=== PATIENT | male | born 1960 | race Hispanic/Latino ===

== ENCOUNTER 2020-06-10 08:15 | Outpatient (CLI) | payer BC, MEDICAID, SELFPAY | END 2020-06-10 08:16 | disposition home or self-care (01) | PROVIDERS: PCP Emergency Medicine; Visit Provider Emergency Medicine | DX: H90.3 Sensorineural hearing loss, bilateral (principal) | CPT/HCPCS: 92557; 92567 ==

== ENCOUNTER 2020-10-02 10:03 | Emergency (ER) | payer OTHER, BC, SELFPAY ==
--- NOTE | ~2020-10-02 | XR_ITS ---
EXAMINATION: XR foot LT min 3V DATE: 10/02/2020 10:29 INDICATION: Left foot pain. Injury. TECHNIQUE: 4 views of left foot were obtained. COMPARISON: None. FINDINGS: There is moderate hallux valgus. No fracture. There is mild osteoarthritis of first metatar sophalangeal joint and talonavicular joint. There is an enthesophyte at plantar aspect of calcaneal t uberosity. IMPRESSION: 1. Mild polyarticular osteoarthritis. 2. Moderate hallux valgus. Reviewed, dictated and finalized at location B.
[2020-10-02 10:17] VITALS: BP 112/79; PULSE 62; RESP 20; TEMP 36.1; O2SAT 97
--- NOTE | 2020-10-02 10:28 | ED.LOWEXIN ---
HPI - Extremity Injury (Lower) General Chief Complaint: Extremity Injury, Lower Stated Complaint: L FOOT INJURY Source: patient Mode of arrival: ambulatory Limitations: no limitations History of Present Illness HPI Narrative: Kain Diego is a 60 yo male with a PMH of GERD, anxiety, high cholesterol, who comes to [facility] after having his left foot run over by a roller yesterday at work. He was wearing steel toed shoes. 2 out of 10 pain to distal part of toes, some tingling Patient fell off back home couple years ago and had resulted in a cervical fusion he applied for disability and was denied he been off work for many years before he went back to work; currently working paving, but that ran over his foot with a large industrial size roller Related Data Home Medications Medication Instructions Recorded Confirmed alprazolam 10/02/20 hydrocodone-acetaminophen tablet 10/02/20 omeprazole 10/02/20 simvastatin mg 10/02/20 zolpidem 10/02/20 Allergies Allergy/AdvReac Type Severity Reaction Status Date / Time naproxen Allergy Mild Rash Verified 10/02/20 10:16 Review of Systems Review of Systems: CONSTITUTIONAL: Denies fever, chills, sweats. EYES: Denies visual changes, redness, discharge. ENT: Denies rhinorrhea, congestion, sore throat, otalgia. CARDIOVASCULAR: Denies chest pain, palpitations, edema. RESPIRATORY: Denies dyspnea, wheezing, cough GASTROINTESTINAL: Denies abdominal pain, nausea, vomiting, diarrhea. GENITOURINARY: Denies dysuria, hematuria, abnormal discharge SKIN: Denies rash or itching. NEUROLOGIC: Denies numbness, or focal weakness. PSYCHIATRIC: Denies anxiety or depression. Left foot pain after trauma yesterday at work [facility] Past Medical History Medical History Chronic back pain GERD with apnea High cholesterol Tobacco abuse Family History Family History Other No acute medical problems Social History Social History (Updated 10/02/20 @ 10:51 by Nikki Baez CNP) Smoking packs per day: 0.25 Smoking cigarettes per day: 5.0 Smoking status: Current every day smoker Tobacco type: cigarettes Alcohol intake: never Comments At time of signature, I agree with nursing past medical, surgical, social and family history. There is no relevant family history pertinent to the presenting complaint. Exam Narrative: GENERAL: This is a well-nourished, well-developed patient, in mild distress. HEAD: normocephalic, atraumatic. EYES: Sclera clear/white. Vision is grossly intact. EARS: External ears normal,. Hearing grossly intact. NOSE: External nose normal without nasal discharge, nares without redness, no rhinorrhea. THROAT: Mucous membranes moist, NECK: Neck supple, non-tender CARDIOVASCULAR: Regular rate and rhythm without murmurs, gallops, or rubs. RESPIRATORY: Clear to auscultation. Breath sounds equal bilaterally. No wheezes, rales, or rhonchi. GASTROINTESTINAL: not done SKIN: warm, intact with no suspicious lesions or rash, good texture and turgor. NEURO: awake, alert, and oriented to person, place and time. There were no obvious focal neurologic abnormalities. Steady gait EXTREMITIES: Able to walk on foot states the pain is 2 out of 10 on exam has light bruising at the base of his great toe nail and distal phalanges as well as mild numbness and great toe in the next 2 toes he has a small bruise on the dorsal proximal foot towards the great toe,2+ pedal pulse, is able to move toes, minimal swelling noted BACK: Nontender without deformity Course Course Emergency Course: Came to [facility] today for evaluation of left foot after foot was run over with a roller at work yesterday X-rays negative for fracture, mild polyarticular osteoarthritis, moderate hallux valgus, incidental enthescphyte at plantar aspect of calcaneal tuberosity Denzel wrap applied to foot, he morales
== END 2020-10-02 11:06 | disposition home or self-care (01) ==
PROVIDERS: Emergency Provider Nurse Practitioner; PCP Emergency Medicine
DX: S99.922A Unspecified injury of left foot, initial encounter (principal); X58.XXXA Exposure to other specified factors, initial encounter; K21.9 Gastro-esophageal reflux disease without esophagitis; F41.9 Anxiety disorder, unspecified; E78.00 Pure hypercholesterolemia, unspecified
CPT/HCPCS: 73630; 99213; G0463

== ENCOUNTER → 2021-02-24 15:26 | Outpatient (CLI) | payer BC, MEDICAID, SELFPAY ==
--- NOTE | ~2021-02-24 | CT_ITS ---
EXAMINATION: CT lung screening DATE: 02/24/2021 15:54 INDICATION: Personal history of nicotine dependence, current smoker with 40 pack year history TECHNIQUE: Computed tomography (CT) of the chest was performed without intravenous contrast. The dose -length product (DLP) was 89.86 mGy-cm. Automated exposure control and iterative reconstruction techn An [employer] were employed. COMPARISON: None FINDINGS: There is a 3 mm nodule of the right middle lobe. There is mild dependent atelectasis. There is atelectasis or scarring of the lingula. No acute airspace opacities are identified. There is no p leural effusion or pneumothorax. No pathologically enlarged thoracic lymph nodes are identified. The heart size is normal. There are partially imaged changes of anterior fusion of the lower cervical spi ne. There is mild thoracic spondylosis. IMPRESSION: 1. Lung-RADS category 2: Benign appearance or behavior. Continue annual screening with noncontrast lo w-dose chest CT in 12 months. Reviewed, dictated and finalized at location F. IC ADMINISTRATION PROFESSOR IMPRESSION: 1. Lung-RADS category 2: Benign appearance or behavior. Continue annual screeni ng with noncontrast low-dose chest CT in 12 months.
== END ==
PROVIDERS: Visit Provider Emergency Medicine
DX: Z12.2 Encounter for screening for malignant neoplasm of respiratory organs (principal); Z87.891 Personal history of nicotine dependence
CPT/HCPCS: 71271

== ENCOUNTER 2021-09-15 14:00 | Outpatient (CLI) | payer BC, MEDICAID, SELFPAY ==
--- NOTE | ~2021-09-15 | CT_ITS ---
EXAMINATION: CT abdomen pelvis wo/w con DATE: 09/15/2021 15:05 INDICATION: Asymptomatic microscopic hematuria TECHNIQUE: Computed tomography (CT) of the abdomen and pelvis was performed without and subsequently with 130 CC Omnipaque 350 intravenous contrast. Automated exposure control and iterative reconstructi on technique were employed. Exam dose: 1334.84 mGy-cm total exam DLP. COMPARISON: 09/27/2010 complete abdominal ultrasound examination FINDINGS: There is mild discoid atelectasis and/or scarring at both lung bases. Heart size is within normal range. No pleural or pericardial effusion. The liver, gallbladder, bile ducts, pancreas, pancreatic duct and spleen appear normal. Normal morphology of the adrenal glands. Several renal cysts including 3 mm upper pole right renal cyst, 12 mm lower pole right renal cyst, 5 mm lower pole right renal cyst. No other renal space occupying mass lesion is detected. No urinary tract calculus or hydroureteronephrosis. No filling defect of the renal collecting struct ures, ureters or urinary bladder is noted. There is prominent prostate enlargement, impressing the ba se of the urinary bladder. There is atherosclerotic calcification but normal caliber of the abdominal aorta. No intraperitoneal or retroperitoneal or pelvic mass lesion or adenopathy or ascites. Normal appendix. No bowel obstruction, bowel wall thickening, pneumatosis or intraperitoneal free air . Minimal left colon diverticulosis; no CT evidence of diverticulitis. Degenerative spurring of the thoracic spine. There is degenerative change at the lumbar apophyseal joints with associated minimal grade 1 anteroli sthesis at L4-5. There is mild degenerative disc disease of the lumbar spine. No suspicious osteolytic or osteoblastic lesions. IMPRESSION: Prominent prostate enlargement No urinary tract mass lesion or calculus or urinary tract obstruction is noted otherwise Normal appendix Mild left colonic diverticulosis; no evidence of diverticulitis Reviewed, dictated and finalized at Location A. Reviewed, dictated and finalized at location B.
[2021-09-15 14:35] LABS: Estimated Glomerular Filt Rate > 60
== END 2021-09-15 14:01 ==
LOC: MICIMG 14:02
PROVIDERS: PCP Emergency Medicine; Visit Provider Emergency Medicine
DX: R31.21 Asymptomatic microscopic hematuria (principal); K57.30 Diverticulosis of large intestine without perforation or abscess without bleeding; N40.0 Benign prostatic hyperplasia without lower urinary tract symptoms
CPT/HCPCS: 74178; Q9967

== ENCOUNTER 2022-01-17 13:17 | Outpatient (CLI) | payer BC, MEDICAID, SELFPAY ==
--- NOTE | ~2022-01-17 | MR_ITS ---
EXAMINATION: MR humerus LT wo/w con DATE: 01/17/2022 15:23 INDICATION: Left upper arm mass TECHNIQUE: Magnetic resonance imaging (MRI) of the left humerus/upper arm was performed without and w ith 14 mL Multihance intravenous contrast. A marker was placed over the mass. Sequences included axi al, sagittal and coronal T1-weighted FSE and fluid sensitive FSE STIR, axial T1-weighted FS FSE and p ost contrast axial and coronal T1-weighted FS FSE. COMPARISON: None. FINDINGS: There is a lenticular lesion T1 hyperintense subcutaneous lipoma at the medial aspect of the proximal left upper arm which measures 9.5 x 6.5 x 2.7 cm. No evident soft tissue or abnormally enhancing com ponent to the lipoma. The underlying musculature of the left upper arm is unremarkable. No other abno rmal masses or fluid collections identified. No pathologically enlarged left axillary lymphadenopathy . Normal bone marrow signal throughout. Left glenohumeral joint space appears normal. Minimal left ac romioclavicular osteoarthritis. IMPRESSION: 1. The mass of concern corresponds to a 9.5 x 6.5 x 2.7 cm subcutaneous lipoma at the medial aspect o f the proximal left upper arm. Reviewed, dictated and finalized at location A. TH AND WELLNESS ADVISOR IMPRESSION: 1. The mass of concern corresponds to a 9.5 x 6.5 x 2.7 cm subcutaneous lipoma at the medial aspect of the proximal left upper arm.
== END 2022-01-17 13:18 | disposition home or self-care (01) ==
PROVIDERS: PCP Emergency Medicine; Visit Provider Emergency Medicine
DX: D17.22 Benign lipomatous neoplasm of skin and subcutaneous tissue of left arm (principal)
CPT/HCPCS: 73220; A9577

== ENCOUNTER 2022-02-23 01:06 | Day surgery (SDC) | payer BC, MEDICAID, SELFPAY ==
[2022-02-19 08:42] VITALS: BMI 24.9
--- NOTE | 2022-02-19 08:49 | PC.NURSE ---
Report to the Outpatient Waiting Room, entrance under the green pavilion located off [facility], at time 1300 on date 02/23/22. Planned Procedure Time: 1500. Time changes happen often and if your time is changed the preop area will call you the afternoon before. - You and your visitor will be asked to self-screen and do not enter if you have any COVID symptoms. - Only one visitor is requested with a max of two and NO children visitors are allowed at this time. - The patient visitor may be requested to leave or wait in car when not with patient due to distancing restrictions. - A mask is REQUIRED within the hospital. Patients may have clear liquids (water, carbonated beverages, clear teas, apple juice) until 3 hours prior to surgery with a maximum of 20 ounces. - No food from midnight until time of surgery Take the following medications with a SIP of water the morning of surgery: XANAX, PAIN PILL IF NEEDED Medications to discontinue per physician: N/A Date to take last dose: N/A Please no make-up, nail danish, hairspray, perfume, deodorant, or body powder the day of surgery. No jewelry (including any body piercings) or valuables the day of surgery, leave them at home. Please take a shower or bath the night before, or the morning of, surgery with an antibacterial soap. Wear comfortable, loose fitting clothing. - Jewelry must be removed prior to entering the operating room. Rings and piercings that are not removed may be cut off. - The hospital will not accept responsibility for valuables. - Please leave all valuables, including medications, at home the day of surgery. If you are going home after surgery, a licensed coal tram driver must drive you home. - NO public transportation without another adult if you receive anesthesia. - We recommend that an adult stay with you for 24 hours following discharge. - We also recommend that you do not drive, make important decision, drink alcoholic beverages, or take any drugs that were not prescribed by your health care provider for at least 24 hours after your discharge time. Follow any additional instructions given to you from your surgeon. If you or anyone in your household have experienced Covid symptoms in the past week, please notify your surgeon or the nurse liaison at the phone number below for possible testing. Telephone instructions given to PT - SHAWN HORAN and asked if any additional questions and then verbalized understanding. Patient advised to call surgeon office or pre surgery nurse liaison [phone] if any additional questions.
[2022-02-23] VITALS (8 sets, daily range): BP systolic 113–144; BP diastolic 54–89; PULSE 50–75; RESP 12–16; TEMP 36.2–36.6; O2SAT 96–100
--- NOTE | 2022-02-23 10:06 | ECG_ITS ---
Measurements Intervals [place] Rate: 51 P: 47 UT: 146 QRS: 21 QRSD: 87 T: 52 QT: 432 QTc: 402 Interpretive Statements SINUS BRADYCARDIA BASELINE ARTIFACT- V1 BORDERLINE ECG NO PREVIOUS ECG AVAILABLE FOR COMPARISON Electronically Signed On 02-23-2022 10:24:53 CONCRETE BOOM OPERATOR by Edgar Caballero D.O.
--- NOTE | 2022-02-23 10:39 | P.PNAN_ITS ---
Anes - Initial Pre Proc Eval Procedure: Operation Date: 02/23/22 12:30 Proposed Procedures p Excision of Left Upper Arm Subcutaneous Mass - Rob Palmer MD Date/Time: 02/23/22 10:39 Surgeon: Rob Palmer MD Pre Op Diagnosis: left upper arm subcutaneous mass Patient Data Age: 61 Gender: M Height: 1.68 m Weight: 68.7 kg Last Vital Signs Temp 36.6 C 02/23/22 10:09 Pulse 50 L 02/23/22 10:09 Resp 16 02/23/22 10:09 BP 113/73 02/23/22 10:09 Pulse Ox 98 02/23/22 10:09 O2 Del Method Room Air 02/23/22 10:09 Allergies Allergy/AdvReac Type Severity Reaction Status Date / Time NSAIDS (Non-Steroidal Allergy Rash Verified 02/23/22 09:55 Anti-Inflamma Home Medications Medication Instructions Recorded Confirmed Type alprazolam 1 mg tablet 1 mg PO QID PRN Anxiety 02/19/22 02/19/22 History hydrocodone 10 mg-acetaminophen 1 tablet PO Q8H PRN Pain 02/19/22 02/19/22 History 325 mg tablet omeprazole 20 mg capsule,delayed 20 mg PO DAILY 02/19/22 02/19/22 History release rosuvastatin 10 mg tablet 10 mg PO DAILY 02/19/22 02/19/22 History zolpidem 10 mg tablet 10 mg PO HS 02/19/22 02/19/22 History Patient hx anesthesia problems: none Family hx anesthesia problems: none Results Review: All pre-operative results and documents have been reviewed as part of the pre- operative evaluation. [facility] Past Medical History Medical History Chronic back pain Depression with anxiety GERD with apnea High cholesterol Tobacco abuse Family History Family History (Updated 02/18/22 @ 13:13 by Rachael Isaacs CMA) Other Cancer Social History Social History Smoking packs per day: 1 Smoking cigarettes per day: 20.0 Years smoked: 25 Smoking pack-years: 25.00 Smoking status: Current every day smoker Tobacco type: cigarettes Alcohol intake: never Substance use: never Substance use type: does not use Living arrangements: with family Additional occupation/education comments: [email or web address] Spiritual care concerns: No Anes - Eval Final PreProcedure Day of Procedure 02/23/22 10:39 Patient weight: normal Heart: regular rate and rhythm Lungs: clear to auscultation Airway: Mallampati scale class II Neurological: alert and oriented Last oral intake: >/= 8 hours ASA classification: III Emergent: no Anesthetic plan: proceed Anesthesia type and monitoring: general LMA and standard monitoring Results Review: All pre-operative results and documents have been reviewed as part of the pre- operative evaluation. Informed Consent: The patient's anesthetic plan and its attendant risks and benefits were discussed with the patient/family/POA. Questions were solicited and answers provided to the satisfaction of the patient/family/POA.
--- NOTE | 2022-02-23 12:28 | WPDHPUPDATE1 ---
History and Physical Update Update Date/Time: 02/23/22 12:28 History and Physical has been reviewed, including an updated exam of the patient. There are NO changes in the patient's condition. Risks, benefits, and alternatives have been discussed and questions answered. Patient agrees to proceed with procedure.
[2022-02-23] MEDS: ceFAZolin 2 GM/D5W 50 ML 2 GM/50 ML BAG IVPB (12:40)
[2022-02-23] MEDS: LIDOCAINE HCL 1% PF 30 ML VIAL 10 ML INFILTRATE (13:05)
[2022-02-23] MEDS: BUPIVACAINE HCL 0.5% PF 30 ML VIAL 10 ML INFILTRATE (13:06)
--- NOTE | 2022-02-23 13:19 | SUR.OPER ---
specimen measures 10cm x 8cm x 1cm
--- NOTE | 2022-02-23 13:34 | P.OP_ITS ---
Procedure Note - Detailed Date of Procedure 02/23/22 Pre-op Diagnosis left upper arm subcutaneous mass Post-op Diagnosis Same Procedure Performed Excision left upper arm lipoma Surgeon Rob Palmer MD Anesthesia General Indications Patient is a 61-year-old gentleman who presented with very slowly enlarging well -circumscribed subcutaneous mass in the medial aspect of the left upper arm. MRI showed this to be most likely a lipoma. He presents now for excision of the lipoma. Findings Well encapsulated subcutaneous mass grossly consistent with a benign lipoma measuring [id number]. Description of Procedure After informed consent was obtained the patient is brought to the obturator was placed under general LMA anesthesia. the area of the left upper arm and axilla was then prepped and draped in the usual sterile fashion. A time-out was then performed correctly identifying the patient as well as the procedure to be performed by verifying the site marking and that he was given IV antibiotics. I then made a longitudinal incision in parallel with the long axis of the left upper arm over the midportion of the mass. Dissection was carried down through the subcutaneous tissues electro cautery until the capsule of the lipoma was encounter. Then with a combination of electric cautery and blunt finger dissection I excised off the lipoma from the underlying fascia of the biceps muscle. There was no subfascial component. Once the mass was excised out it was measured and it was 10centimeters in length by 8centimeters in width by a 1centimeter in depth. It was sent to pathology for examination. I then irrigated the incision with sterile saline solution and hemostasis was achieved utilizing the cautery. the wound was then closed utilizing layers of interrupted 2 0 Vicryl suture in the subcutaneous tissues which was then followed by a layer of interrupted 3 0 Vicryl sutures in the deep dermal layer. the skin edges were approximated utilizing a running subcuticular 4 0 Monocryl suture. Area was then cleaned and then skin glue and a pressure dressing was applied. The patient tolerated the procedure well and there were no complications. all sponges needles and instrument counts are correct at the end the procedure. Estimated blood loss was 5cc. The patient was taken to recovery in stable satisfactory condition. Implants None Estimated Blood Loss 5 Drains No Packing No Pathology Yes Complications No immediate complications Condition Stable Disposition PACU [facility] Billing Surgery - Charge Forward: Surgery Billing
[2022-02-23] MEDS: LACTATED RINGERS 1,000 ML 30 ML IV CONT (13:35)
[2022-02-23] MEDS: oxyCODONE HCL (*CRX) 5 MG TAB IR PO (14:47)
== END 2022-02-23 15:32 | disposition home or self-care (01) ==
PROVIDERS: PCP Emergency Medicine; Visit Provider Surgery
PROC: (CPT 24071; principal; 2022-02-23 12:30)
DX: D17.22 Benign lipomatous neoplasm of skin and subcutaneous tissue of left arm (principal); K21.9 Gastro-esophageal reflux disease without esophagitis; E78.00 Pure hypercholesterolemia, unspecified; F41.8 Other specified anxiety disorders; M54.9 Dorsalgia, unspecified; G89.29 Other chronic pain; Z79.891 Long term (current) use of opiate analgesic; F17.210 Nicotine dependence, cigarettes, uncomplicated
CPT/HCPCS: 24071; 88304; 93005; A9270; J0690; J1100; J1170; J2250; J2405; J2704; J3010; J7120

== ENCOUNTER 2022-04-15 15:15 | Emergency (ER) | payer BC, MEDICAID, SELFPAY ==
--- NOTE | 2022-04-15 15:23 | ED.GENADULT ---
HPI - General Adult General Chief complaint: Weakness Stated complaint: weakness Time Seen by Provider: 04/15/22 15:23 Source: patient, RN notes reviewed and old records reviewed Mode of arrival: ambulatory Limitations: no limitations History of Present Illness HPI narrative: 61-year-old male presents to the [facility] with complaints of generalized weakness, dizziness, states he is about to pass out. States it has been intermittent for about a month. States this morning it became worse. Patient with an unsteady gait on arrival, placed in wheelchair. very weak upon standing, 1 person assist to transfer from wheelchair to stretcher. Patient denies any chest pain or shortness of breath. Patient denies headache. denies any upper respiratory symptoms Patient states that he did take his alprazolam this morning. Patient reports he thought it was his anxiety this morning but symptoms keeps getting worse Patient was hooked up to a monitor, heart rate dropping to 38. Patient kept repeating that he is going to pass out, lying on a stretcher Related Data Home Medications Medication Instructions Recorded Confirmed alprazolam 1 mg tablet 1 mg PO QID PRN Anxiety 02/19/22 02/19/22 hydrocodone 10 mg-acetaminophen 1 tablet PO Q8H PRN Pain 02/19/22 02/19/22 325 mg tablet omeprazole 20 mg capsule,delayed 20 mg PO DAILY 02/19/22 02/19/22 release rosuvastatin 10 mg tablet 10 mg PO DAILY 02/19/22 02/19/22 zolpidem 10 mg tablet 10 mg PO HS 02/19/22 02/19/22 Allergies Allergy/AdvReac Type Severity Reaction Status Date / Time NSAIDS (Non-Steroidal Allergy Rash Verified 03/09/22 09:39 Anti-Inflamma Review of Systems Review of Systems: All systems reviewed & are unremarkable except as noted in HPI and below Constitutional: Constitutional: Reports no additional constitutional complaints Eyes: Eyes: Reports no additional eye complaints ENT: Reports system reviewed and no additional complaints, except as documented Cardiovascular: Cardiovascular: Reports no additional cardiovascular complaints, Denies chest pain and Denies dyspnea Respiratory: Respiratory: Reports no additional respiratory complaints, Denies chest congestion, Denies cough and Denies dyspnea Gastrointestinal: Gastrointestinal: Reports no additional gastrointestinal complaints, Denies abdominal pain, Denies nausea and Denies vomiting Musculoskeletal: Musculoskeletal: Reports no additional musculoskeletal complaints Integumentary/Breasts: Skin/Breast: Reports system reviewed and no additional complaints, except as docu Neurologic: Reports as per HPI, Reports dizziness and Reports syncope (Near syncopal) Psychiatric: Psychiatric: Reports no additional psychiatric complaints Allergic/Immunologic: Allergic/Immunologic: Reports no additional allergic/immunologic complaints PMF Past Medical History Medical History Chronic back pain Depression with anxiety GERD with apnea High cholesterol Tobacco abuse Surgical History Surgical History S/P excision of lipoma 02/23/22 on left arm Family History Family History Other Cancer Social History Social History Smoking packs per day: 1 Smoking cigarettes per day: 20.0 Years smoked: 25 Smoking pack-years: 25.00 Smoking status: Current every day smoker Tobacco type: cigarettes Alcohol intake: never Substance use: never Substance use type: does not use Living arrangements: with family Occupation/Education: occupation Additional occupation/education comments: [employer] Spiritual care concerns: No Comments At the time of my signature, I reviewed and agree with the nursing past medical, surgical, social, and family history. There is no relevant family hist
[2022-04-15 15:31] VITALS: BP 137/92; PULSE 50; RESP 16; TEMP 36.5; O2SAT 100
[2022-04-15 15:31] LABS: Glucose Point of Care 87 mg/dl (65-105)
--- NOTE | 2022-04-15 15:33 | ECG_ITS ---
Measurements Intervals [place] Rate: 50 P: 35 WV: 147 QRS: 10 QRSD: 87 T: 52 QT: 434 QTc: 396 Interpretive Statements SINUS BRADYCARDIA RSR' IN V1 OR V2, PROBABLY NORMAL VARIANT BASELINE ARTIFACT- I, II, III, AVR, AVL, AVF BORDERLINE ECG COMPARED TO ECG 02/23/2022 10:17:56 NO SIGNIFICANT CHANGES Electronically Signed On 04-15-2022 19:22:07 COTTON CLASSER AIDE by Edgar Caballero D.O.
[2022-04-15 15:38] VITALS: BP 137/92; PULSE 50; RESP 16; TEMP 36.5; O2SAT 100
--- NOTE | 2022-04-15 16:06 | PC.NURSE ---
1530 provider to provider report in progress. had son on phone and discussed option of ama and private vehicle vs ems transfer. pt and son requested fingerprint expert recommendation of ems transfer. 1537 ems called. 1538 report given to battery charger tester. 1543 ems here 1547 care transferred to [facility].
== END 2022-04-15 15:47 | disposition short-term general hospital (02) ==
PROVIDERS: Emergency Provider Nurse Practitioner; PCP Emergency Medicine
DX: R00.1 Bradycardia, unspecified (principal); R42 Dizziness and giddiness; R53.1 Weakness; F17.210 Nicotine dependence, cigarettes, uncomplicated
CPT/HCPCS: 82948; 93005; 99215; G0463

== ENCOUNTER 2022-04-15 16:11 | Emergency (ER) | payer BC, MEDICAID, SELFPAY ==
[2022-04-15] VITALS (16 sets, daily range): BP systolic 118–146; BP diastolic 66–104; PULSE 46–55; RESP 10–19; TEMP 36.6–36.7; O2SAT 94–99
--- NOTE | ~2022-04-15 | CT_ITS ---
EXAMINATION: CTA brain carotid DATE: 04/15/2022 20:39 INDICATION: Altered mental status, near syncope TECHNIQUE: Computed tomographic angiography (CTA) of the head was performed without and with 100 mL O mnipaque-350 intravenous contrast. CTA of the neck was performed with intravenous contrast. The dose- length product was 1712.38 mGy-cm. Maximum intensity projection and volume rendered 3D-reconstruction s were created by the technologist on a separate workstation. Automated exposure control and iterativ e reconstruction technique were employed. COMPARISON: 05/17/2013 FINDINGS: HEAD CTA: There is no intracranial hemorrhage, acute infarction, or abnormal mass lesion. The ventric les are normal. There is no abnormal mass effect or midline shift. The walters-white matter differentiat ion is normal. The basal cisterns are patent. The orbits are normal. The paranasal sinuses, mastoids and calvarium are normal. There is no significant stenosis of the basilar artery or posterior cerebral arteries. There is no si gnificant stenosis of the intracranial internal carotid arteries or the anterior or middle cerebral a rteries. The anterior communicating artery and posterior communicating arteries are normal. There is no aneurysm. NECK CTA: Thyroid nodules measure up to 8 mm on the right. The submandibular and parotid glands are s ymmetric. There is no lymphadenopathy. There are no masses identified. The airway is unremarkable. Th ere are changes of anterior fusion from C5 through C7. The superior mediastinum is unremarkable. There is 0% stenosis of the proximal right internal carotid artery relative to normal distal artery l umen diameter (NASCET criteria). There is 0% stenosis of the proximal left internal carotid artery re lative to normal distal artery lumen diameter. IMPRESSION: 1. No acute intracranial abnormality. Normal head CTA. 2. 0% stenosis of the proximal right internal carotid artery relative to normal distal artery lumen d iameter (NASCET criteria). 3. 0% stenosis of the proximal left internal carotid artery relative to normal distal artery lumen di ameter. Reviewed, dictated and finalized at location F. GEMENT EXPERT IMPRESSION: 1. No acute intracranial abnormality. Normal head CTA. 2. 0% stenosis of the proximal right internal carotid artery relative to normal distal artery lumen diameter (NASCET criteria). 3. 0% stenosis of the proximal left internal carotid artery relative to normal distal artery lumen diameter.
--- NOTE | ~2022-04-15 | XR_ITS ---
EXAMINATION: XR chest 2V DATE: 04/15/2022 20:48 INDICATION: Weakness TECHNIQUE: AP and lateral views of the chest are obtained. COMPARISON: None available FINDINGS: There is mild atelectasis of the lung bases. No pleural effusion or pneumothorax. The cardi omediastinal silhouette is normal. There is mild thoracic spondylosis. Changes of anterior fusion pro cedure are noted in the lower cervical spine. IMPRESSION: 1. Mild atelectasis of the lung bases. Reviewed, dictated and finalized at location F. UCTION FLOATER
--- NOTE | 2022-04-15 17:16 | ECG_ITS ---
Measurements Intervals [place] Rate: 53 P: 62 NM: 158 QRS: 15 QRSD: 83 T: 46 QT: 431 QTc: 406 Interpretive Statements SINUS BRADYCARDIA RSR' IN V1 OR V2, PROBABLY NORMAL VARIANT BASELINE ARTIFACT- I, II, III, AVR, AVL, AVF BORDERLINE ECG COMPARED TO ECG 04/15/2022 15:32:59 NO SIGNIFICANT CHANGES Electronically Signed On 04-15-2022 19:22:36 FRONT DESK PERSON by Edgar Caballero D.O.
[2022-04-15 17:36] LABS: Basophils Absolute Auto 0.1 K/mm3 (0.0-0.1); Eosinophils Absolute Auto 0.2 K/mm3 (0-0.3); Hematocrit 50.1 % (42.0-52.0); Hemoglobin 16.9 g/dL (14.0-18.0); Immature Granulocyte Absolute 0.04 K/mm3 (0.00-0.031); Immature Granulocyte Percent A 0.6 % (0-0.5); Lymphocytes Absolute Auto 2.22 K/mm3 (0.9-3.2); Lymphocytes Percent Auto 31.9 % (18.3-44.2); Mean Corpuscular HGB Conc 33.7 g/dl (32-36); Mean Corpuscular Hemoglobin 31.1 pg (26-34); Mean Corpuscular Volume 92.1 fl (80-100); Mean Platelet Volume 9.6 fl (7.4-10.4); Monocytes Absolute Auto 0.4 K/mm3 (0.1-0.6); Monocytes Percent Auto 5.7 % (2.6-8.5); Neutrophils Percent Auto 57.8 % (45.5-73.1); Platelet Count Result 164 k/mm3 (150-375); Red Blood Count 5.44 M/mm3 (4.6-6.20); Red Cell Distribution Width 12.6 % (11.5-14.5)
[2022-04-15 17:46] LABS: Alanine Aminotransferase 36 U/L (6-50); Albumin Level 4.6 g/dL (3.5-5.1); Alkaline Phosphatase 77 U/L (38-126); Anion Gap 4 mmol/L (8-16); Aspartate Amino Transferase 28 U/L (17-59); Bilirubin,Total 0.6 mg/dL (0.2-1.3); Blood Urea Nitrogen 19 mg/dL (9-20); Calcium 8.9 mg/dL (8.4-10.2); Carbon Dioxide 29 mmol/L (22-30); Chloride 102 mmol/L (98-107); Estimated CRCL calculation 54 ml/min; Estimated Glomerular Filt Rate > 60; Glucose 92 mg/dL (65-110); Potassium 5.7 mmol/L (3.4-5.0); Sodium 135 mmol/L (137-145)
[2022-04-15] MEDS: SODIUM CHLORIDE 0.9% IV 1,000 ML 999 ML IV CONT (21:05)
[2022-04-15 21:19] LABS: Ammonia < 9 umol/L (9-30)
[2022-04-15 21:23] LABS: Lactic Acid Reflex 1.3 mmol/L (0.7-2.0)
[2022-04-15 21:24] LABS: Ethanol < 10 mg/dL (<10)
[2022-04-15 21:41] LABS: Magnesium 2.2 mg/dL (1.6-2.3)
[2022-04-15 21:54] LABS: Troponin I < 0.012 ng/mL (0.000-0.034)
[2022-04-15 22:07] LABS: Procalcitonin 0.1 ng/mL
[2022-04-15 22:10] LABS: Appearance Urine Clear (Clear); Bacteria Urine None Seen /hpf; Bilirubin Urine Negative (Negative); Blood Urine Trace (Negative); Color Urine Yellow (Yellow); Glucose Urine UA Negative (Negative); Ketones Urine Negative (Negative); Leukocyte Esterase Ur Negative LEU/UL (Negative); Nitrate Urine Negative (Negative); Non Pathogenic Casts 0-2; Protein Urine Negative (Negative); RBC Urine 0-2 /hpf (0-2); Squamous Epithelial Cell Urine None seen /hpf (Few); Urobilinogen Urine 0.2 mg/dL (<2.0); WBC Urine 0-5 /hpf; pH Urine 6.5 (5.0-9.0)
[2022-04-15 22:19] LABS: Amphetamine Screen Urine Negative (Negative); Barbiturate Screen Urine Negative (Negative); Benzodiazepines Screen Urine Positive (Negative); Cannabinoid Screen Urine Negative (Negative); Cocaine Screen Urine Negative (Negative); Methadone Screen Urine Negative (Negative); Opiate Screen Urine Positive (Negative); Phencyclidine Screen Urine Negative (Negative)
[2022-04-15 22:29] LABS: Add Urine Microscopic? YES; Specific Grav Ur 1.069 (1.001-1.035)
--- NOTE | 2022-04-15 22:34 | ED.GENADULT ---
HPI - General Adult General Chief complaint: Syncope Stated complaint: lightheadness Time Seen by Provider: 04/15/22 19:53 History of Present Illness HPI narrative: Patient is a 61-year-old gentleman who presents the emergency department with chief complaint of syncopal episodes. Patient reports over the last month he has been having episodes that he feels as though he is going to pass out and feels as though he is weaker than normal. Patient states these have been increasing in numbers and reports that finally today he called his primary care doctor's office and decided to come to the emergency department. Patient denies chest pain denies vomiting denies diarrhea. The family noticed that he has been more aggressive lately and more argumentative but denies true altered mental status. Related Data Home Medications Medication Instructions Recorded Confirmed alprazolam 1 mg tablet 1 mg PO QID PRN Anxiety 02/19/22 02/19/22 hydrocodone 10 mg-acetaminophen 1 tablet PO Q8H PRN Pain 02/19/22 02/19/22 325 mg tablet omeprazole 20 mg capsule,delayed 20 mg PO DAILY 02/19/22 02/19/22 release rosuvastatin 10 mg tablet 10 mg PO DAILY 02/19/22 02/19/22 zolpidem 10 mg tablet 10 mg PO HS 02/19/22 02/19/22 Allergies Allergy/AdvReac Type Severity Reaction Status Date / Time NSAIDS (Non-Steroidal Allergy Rash Verified 04/15/22 18:37 Anti-Inflamma Review of Systems Review of Systems: A 10 system review of systems was completed on the patient and is negative except for what is stated in the HPI. Nursing and ancillary documentation was reviewed. [facility] Past Medical History Medical History Chronic back pain Depression with anxiety GERD with apnea High cholesterol Tobacco abuse Surgical History Surgical History S/P excision of lipoma 02/23/22 on left arm Family History Family History Other Cancer Social History Social History Smoking packs per day: 1 Smoking cigarettes per day: 20.0 Years smoked: 25 Smoking pack-years: 25.00 Smoking status: Current every day smoker Tobacco type: cigarettes Alcohol intake: never Substance use: never Substance use type: does not use Living arrangements: with family Occupation/Education: occupation Additional occupation/education comments: [employer] Spiritual care concerns: No Exam Narrative: GENERAL: Well-appearing, well-nourished, and in no acute distress. HEAD: Normocephalic, atraumatic. EYES: PERRLA and EOMI. ENT: Nares clear, no rhinorrhea or epistaxis. Mucous membranes moist. NECK: Supple. CHEST: Clear to auscultation. No respiratory distress. HEART: Regular rate and rhythm. No murmur heard. Normal peripheral pulses. ABDOMEN: Soft, nontender, nondistended, normal active bowel sounds. EXTREMITIES: Normal range of motion. No edema. SKIN: Warm, dry, no rash. NEURO: No focal deficits. Alert and oriented x3. PSYCH: Normal mood and affect. Course Course Emergency Course: EKG is sinus rhythm rate of [address] elevation or ST depression Differential diagnosis includes CVA, syncopal episodes, dysrhythmia, electrolyte abnormality CTA head and neck showed no evidence of large vessel occlusion and no evidence of hemorrhage. Chest x-ray shows no focal findings Patient is feeling much better at this time and is able to ambulate without difficulty. Given symptoms have been ongoing for over a month patient can be followed up as an outpatient case was discussed with the hospitalist for possible admission recommended the patient follow-up with her primary care provider for outpatient Holter monitor test and echo Vital Signs Vital signs: Vital Signs Temperature 36.7 C 04/15/22 17:10 Pulse R
== END 2022-04-15 23:07 | disposition home or self-care (01) ==
PROVIDERS: Emergency Medicine; Emergency Provider Emergency Medicine; PCP Emergency Medicine
DX: R55 Syncope and collapse (principal); E78.00 Pure hypercholesterolemia, unspecified; K21.9 Gastro-esophageal reflux disease without esophagitis; F41.9 Anxiety disorder, unspecified; F32.A Depression, unspecified; Z79.891 Long term (current) use of opiate analgesic; F17.210 Nicotine dependence, cigarettes, uncomplicated
CPT/HCPCS: 36415; 70496; 70498; 71046; 80053; 80307; 81001; 82140; 83605; 83735; 84145; 84484; 85025; 93005; 96360; 99284; J7030; Q9967

== ENCOUNTER 2022-08-13 15:39 | Outpatient (CLI) | payer BC, MEDICAID, SELFPAY ==
--- NOTE | ~2022-08-13 | CT_ITS ---
EXAMINATION: CT lung screening DATE: 08/13/2022 15:55 INDICATION: Personal history of nicotine dependence, current smoker with 45 pack year history TECHNIQUE: Computed tomography (CT) of the chest was performed without intravenous contrast. The dose -length product (DLP) was 98.49 mGy-cm. Automated exposure control and iterative reconstruction techn [employer] were employed. COMPARISON: 02/24/2021 FINDINGS: There is a stable 3 mm nodule of the right middle lobe. There is a 2 mm nodule of the right lower lobe. The lungs are free of acute opacities. No pleural effusion or pneumothorax. No pathologi bowen enlarged thoracic lymph nodes are identified. The heart size is normal. There is mild thoracic spondylosis. There are partially imaged changes of anterior fusion procedure in the lower cervical sp ine. IMPRESSION: 1. Lung-RADS category 2: Benign appearance or behavior. Continue annual screening with noncontrast lo w-dose chest CT in 12 months. Reviewed, dictated and finalized at location B. IMPRESSION: 1. Lung-RADS category 2: Benign appearance or behavior. Continue annual screeni ng with noncontrast low-dose chest CT in 12 months.
== END 2022-08-13 15:40 | disposition home or self-care (01) ==
PROVIDERS: PCP Emergency Medicine; Visit Provider Emergency Medicine
DX: Z12.2 Encounter for screening for malignant neoplasm of respiratory organs (principal); F17.210 Nicotine dependence, cigarettes, uncomplicated
CPT/HCPCS: 71271

== ENCOUNTER 2022-11-17 11:32 | Outpatient (CLI) | payer OTHER, SELFPAY ==
--- NOTE | ~2022-11-17 | XR_ITS ---
XR lumbar spine 2-3V DATE: 11/17/2022 11:55 INDICATION: Low back pain with sciatica. No injury. TECHNIQUE: AP and lateral views COMPARISON: 08/15/2013 lumbar spine 09/04/2013 MRI lumbar spine FINDINGS: There is degenerative change at the apophyseal joints particularly at L4-5 and L5-S1 with a ssociated grade 1 anterolisthesis at L4-5. Otherwise there is normal alignment of the lumbar spine. There is degenerative spurring in the lower thoracic spine and minimal degenerative spurring and rela tive preservation of the lumbar interspaces at the lumbar spine. Included lower thoracic and lumbar pedicles are intact. No fracture or bone destruction of the lumbar spine. The sacroiliac joints are intact. IMPRESSION: Grade 1 anterolisthesis at L4-5 due to degenerative changes apophyseal joints Mild degenerative change of the lumbar spine Reviewed, dictated and finalized at location B. IMPRESSION: Grade 1 anterolisthesis at L4-5 due to degenerative changes apophys eal joints Mild degenerative change of the lumbar spine
== END 2022-11-17 11:33 | disposition home or self-care (01) ==
PROVIDERS: PCP Emergency Medicine; Visit Provider Emergency Medicine
DX: M54.42 Lumbago with sciatica, left side (principal)
CPT/HCPCS: 72100

== ENCOUNTER 2022-11-24 09:45 | Outpatient (RCR) | payer OTHER, SELFPAY ==
--- NOTE | 2022-10-26 09:44 | OPREHPOC ---
Outpatient Therapy Plan of Care This is a Multidisciplinary Plan of Care that may contain components documented by all disciplines (PT, OT, and ST.) PT Problem 1 PT Problem #1 Knowledge Deficit PT Goal 1 Goal 1* indep with HEP PT Problem 2 PT Problem #2 Pain PT Goal 1 Goal 1* pain rating at worst of 7/10 2* radicular pain R LE to knee at worst 3* radicular pain L LE to knee at worst 4* Oswestry self assessment functional score of 32 % limitation in activity level 5* pt report awakening from sleep 2x/night due to back pain PT Problem 3 PT Problem #3 Impaired Flexibility PT Goal 1 Goal increase hamstring length with supine SLR: 1* R 50' 2* L 50' pt perform without an increase in pain 3* supine trunk rotation 4* supine R hip flexion 5* supine L hip flexion PT Problem 4 PT Problem #4 Impaired Strength PT Goal 1 Goal 1* pt perform 40 minutes of aquatic exercises 2* pt perform 20 reps of supine R and L LE exercises
--- NOTE | 2022-10-26 09:45 | PTOPEVAL1 ---
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 Reported Pain Level Pain Score Self Report Additional Pain Score Comments in the past week pain range of 4-10/10; hurts, painful, bad; intermittent radicular into L LE to foot-seizes up foot and R LE intermittent into calf; lower thoracic- lumbar and sacral into buttocks bilateral increase pain-standing/walking activity tolerance 1 hour; sit tolerance 30-60 min decrease pain- lie flat on back; meds--hydrocodone muscle balm, move around/exercises to move legs with sleeping, awaken 3x/night due to back pain, also take sleeping pills Assessment PT Clinical Summary Abby has the diagnosis of radicular back pain, into both LE's. He has a history of chronic back pain, with decreased stand, sit, sleeping and activity levels. Oswestry self assessment functional score of 42% limitation in activity. 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 History includes dizziness, following with proposal director, anxiety with panic attacks and neck surgery with UE pain L due to axillary tumor removed.
--- NOTE | 2022-11-24 10:40 | OPREHPOC ---
Outpatient Therapy Plan of Care This is a Multidisciplinary Plan of Care that may contain components documented by all disciplines (PT, OT, and ST.) PT Problem 1 PT Problem #1 Knowledge Deficit PT Goal 1 Goal 1* indep with HEP Progress Met Comment 11-24-22 progress /HOLD met goals to see wm roque new orders to continue PT Problem 2 PT Problem #2 Pain PT Goal 1 Goal 1* pain rating at worst of 7/10 2* radicular pain R LE to knee at worst 3* radicular pain L LE to knee at worst 4* Oswestry self assessment functional score of 32 % limitation in activity level 5* pt report awakening from sleep 2x/night due to back pain Progress Partially Met Comment 11-24-22 progress /HOLD met goals 1,2; to see wm roque new orders to continue PT Problem 3 PT Problem #3 Impaired Flexibility PT Goal 1 Goal increase hamstring length with supine SLR: 1* R 50' 2* L 50' pt perform without an increase in pain 3* supine trunk rotation 4* supine R hip flexion 5* supine L hip flexion Progress Not Met Comment 11-24-22 progress /HOLD goals not met to see wm roque new orders to continue PT Problem 4 PT Problem #4 Impaired Strength PT Goal 1 Goal 1* pt perform 40 minutes of aquatic exercises 2* pt perform 20 reps of supine R and L LE exercises Progress Partially Met Comment 11-24-22 progress /HOLD met goal 1 to see wm roque new orders to continue
--- NOTE | 2022-11-24 10:40 | PTOPPROG ---
Assessment and note entered by Mary Adams, PT Evaluation Information Assessment Status Progress Diagnosis lumbago with sciatica into L LE Onset past year Subjective Information back pain is about the same; saw dr earlier this week and going to get an MRI of back, not set up yet; the electrical stim done here helps a little ; have been doing back stretches at home; have been trying to push himself to walk and do more activity; does not have a gym membership for [employer] because of anxiety--does not want to be around people; wants to get the MRI and see what says about his back; PAIN: range in the past week 2-7/10; both side of low back, into both calves, tingling constant with cramping; try to move ankles/legs to get it to ease a little; increase pain: sit tolerance 1& 1/2 hr; walking 15 minutes; decrease pain: self assessment Oswestry score of 38% limitation in activity level; with sleeping, awaken from pain 2x/night, take ambien to help with sleeping; also have neck pain Assessment PT Clinical Summary David has received 9 PT sessions. He is frustrated about his continued pain and inability to do things; anxious about doing things to increase his back pain and most of the mat activities and motions increase his pain. Compared to the initial evaluation: pain rating from 4-10/10 to 2-7/10; radicular pain to R calf and L foot- same; reported tolerances with sitting and sleeping have increased; flexibility with hamstring length is the same and increases pain; supine trunk rotation R/L and hip flexion on R and L increase pian; limited tolerance with mat strengthening exercises due to pain; did tolerate the aquatic exercises; 2 minute walking test distance increased from 260' to 425'; self assessment Oswestry improved from 42 to 38% limitation in activity. The goals were partially met. Kain is to follow up with his Dr; HOLD PT until sees dr. If PT is to continue, pt will obtain a new order. Plan of Care Interventions Aquatic Therapy,Electrical Stimulation,Hot Pack/ Cold Pack,Manual Therapy,[facility]
--- NOTE | 2022-12-29 15:55 | PTOPDC ---
Assessment and note entered by Mary Adams, PT discharge Information Assessment PT Clinical Summary PHYSICAL THERAPY DISCHARGE Further orders were not received after the progress report of 11-24-22. Therefore, he will be discharged at this time. Plan of Care PT Services Indicated No
== END 2022-12-30 15:04 | disposition home or self-care (01) ==
LOC: ANHPT 09:45
PROVIDERS: PCP Emergency Medicine; Visit Provider Emergency Medicine
DX: M54.42 Lumbago with sciatica, left side (principal)
CPT/HCPCS: 97014; 97110; 97113; 97162; 97530; G0283

== ENCOUNTER 2023-05-23 13:18 | Outpatient (CLI) | payer MEDICAID, SELFPAY ==
--- NOTE | ~2023-05-23 | MR_ITS ---
MRI of the lumbar spine Clinical History: Back pain Technique: Axial T2-weighted images, and sagittal T1-weighted, T2-weighted, and T2 fat-sat images wer e acquired. Findings: There is no fracture or sublocation of the lumbar spine. Vertebral bodies maintain normal h eight and alignment. No suspicious bone marrow signal abnormality seen. At L1-L2, there is minimal degenerative change. No disc bulge or herniation. There is mild facet arth ropathy. No central canal stenosis or neural foraminal narrowing. At L2-L3 and L3-L4, there is no disc bulge or herniation. There is mild facet arthropathy at these le vels. No spinal canal stenosis or neural foraminal narrowing at these levels. At L4-L5, there is mild disc bulge and advanced facet arthropathy. No central canal stenosis or neura l foraminal narrowing. At L5-S1, there is mild to moderate degenerative disc narrowing, with mild disc bulge, especially the left paracentral region. There is advanced facet arthropathy. No central canal stenosis. There is mi nimal left neural foraminal narrowing. Right neural foramen preserved. Paravertebral soft tissues are unremarkable. Impression: Minimal degenerative change, as above. Reviewed, dictated and finalized at location M. Impression: Minimal degenerative change, as above.
== END 2023-05-23 13:19 | disposition home or self-care (01) ==
PROVIDERS: PCP Emergency Medicine; Visit Provider Emergency Medicine
DX: M54.42 Lumbago with sciatica, left side (principal)
CPT/HCPCS: 72148

== ENCOUNTER 2023-06-16 00:57 | Day surgery (SDC) | payer OTHER, SELFPAY ==
[2023-05-31 13:50] VITALS: BMI 25.9
[2023-06-16 07:48] VITALS: BP 121/81; PULSE 51; RESP 18; TEMP 36.1; O2SAT 99
[2023-06-16] MEDS: LACTATED RINGERS 1,000 ML 150 ML IV CONT (07:58)
--- NOTE | 2023-06-16 08:33 | PM.HPGS ---
History of Present Illness History of Present Illness Consent: Risks, benefits, and alternatives have been discussed and questions answered. Patient agrees to proceed with procedure. Chief complaint: hx colon polyps Narrative: Kain Diego is a 62 year old male with colon polyps Review of Systems Review of Systems: All systems reviewed & are unremarkable except as noted in HPI and below PMFSH Past Medical History Medical History (Updated 06/16/23 @ 08:36 by Dave Mcduffie MD) Chronic back pain Colon polyp Depression with anxiety GERD with apnea High cholesterol Tobacco abuse Surgical History Surgical History S/P excision of lipoma 02/23/22 on left arm Family History Family History Other Cancer Social History Social History Smoking packs per day: 1 Smoking cigarettes per day: 20.0 Years smoked: 25 Smoking pack-years: 25.00 Smoking status: Current every day smoker Tobacco type: cigarettes Alcohol intake: never Substance use: never Substance use type: does not use Living arrangements: with family Occupation/Education: occupation Additional occupation/education comments: [employer] Spiritual care concerns: No Meds Home Medications and Allergies Home Medications Medication Instructions Recorded Confirmed Type alprazolam 1 mg tablet 1 mg PO QID PRN Anxiety 02/19/22 05/31/23 History hydrocodone 10 mg-acetaminophen 1 tablet PO Q8H PRN Pain 02/19/22 06/16/23 History 325 mg tablet omeprazole 20 mg capsule,delayed 20 mg PO DAILY 02/19/22 05/31/23 History release rosuvastatin 10 mg tablet 10 mg PO DAILY 02/19/22 05/31/23 History zolpidem 10 mg tablet 10 mg PO HS 02/19/22 05/31/23 History Allergies Allergy/AdvReac Type Severity Reaction Status Date / Time NSAIDS (Non-Steroidal Allergy Rash Verified 06/16/23 07:46 Anti-Inflamma Vital Signs Vital Signs - 24 hr 06/16/23 07:48 Temperature 97 F L Pulse Rate 51 L Respiratory Rate 18 Blood Pressure 121/81 Pulse Oximetry 99 Oxygen Delivery Room Air Exam Const: General: comfortable and no acute distress HENMT: Face/Nose/Sinus: Normal nares present Eyes: General: appearance normal, both eyes and all related structures Neck: Neck: no JVD Resp: Auscultation: clear to auscultation bilaterally Cardio: Rate: regular rate Rhythm: regular rhythm GI: Inspection: non-distended GI Palp: Yes Soft to palpation Skin: General skin exam: normal color Neuro: General: gait normal Speech: normal speech Extrem: General: normal to inspection Psych: Mental Status: mental status grossly normal Assessment and Plan Assessment and plan (1) Colon polyp: Code(s): K63.5 - Polyp of colon Status: Acute Assessment and Plan: colonoscopy
--- NOTE | 2023-06-16 08:34 | P.PNAN_ITS ---
Anes - Initial Pre Proc Eval Procedure: Operation Date: 06/16/23 09:00 Proposed Procedures p Colonoscopy - Dave Mcduffie MD Date/Time: 06/16/23 08:34 Surgeon: Dave Mcduffie MD Pre Op Diagnosis: hx colon polyps Patient Data Age: 62 Gender: M Height: 1.68 m Weight: 71.1 kg Last Vital Signs Temp 97 F L 06/16/23 07:48 Pulse 51 L 06/16/23 07:48 Resp 18 06/16/23 07:48 BP 121/81 06/16/23 07:48 Pulse Ox 99 06/16/23 07:48 O2 Del Method Room Air 06/16/23 07:48 Allergies Allergy/AdvReac Type Severity Reaction Status Date / Time NSAIDS (Non-Steroidal Allergy Rash Verified 06/16/23 07:46 Anti-Inflamma Home Medications Medication Instructions Recorded Confirmed Type alprazolam 1 mg tablet 1 mg PO QID PRN Anxiety 02/19/22 05/31/23 History hydrocodone 10 mg-acetaminophen 1 tablet PO Q8H PRN Pain 02/19/22 06/16/23 History 325 mg tablet omeprazole 20 mg capsule,delayed 20 mg PO DAILY 02/19/22 05/31/23 History release rosuvastatin 10 mg tablet 10 mg PO DAILY 02/19/22 05/31/23 History zolpidem 10 mg tablet 10 mg PO HS 02/19/22 05/31/23 History Patient hx anesthesia problems: none Family hx anesthesia problems: none Results Review: All pre-operative results and documents have been reviewed as part of the pre- operative evaluation. [facility] Past Medical History Medical History Chronic back pain Depression with anxiety GERD with apnea High cholesterol Tobacco abuse Surgical History Surgical History S/P excision of lipoma 02/23/22 on left arm Family History Family History Other Cancer Social History Social History Smoking packs per day: 1 Smoking cigarettes per day: 20.0 Years smoked: 25 Smoking pack-years: 25.00 Smoking status: Current every day smoker Tobacco type: cigarettes Alcohol intake: never Substance use: never Substance use type: does not use Living arrangements: with family Occupation/Education: occupation Additional occupation/education comments: [employer] Spiritual care concerns: No Anes - Eval Final PreProcedure Day of Procedure 06/16/23 08:34 Patient weight: normal Heart: regular rate and rhythm Lungs: clear to auscultation Airway: Mallampati scale class II Neurological: alert and oriented Last oral intake: >/= 8 hours ASA classification: III Emergent: no Anesthetic plan: proceed Anesthesia type and monitoring: general GIVS and standard monitoring Results Review: All pre-operative results and documents have been reviewed as part of the pre- operative evaluation. Informed Consent: The patient's anesthetic plan and its attendant risks and benefits were discussed with the patient/family/POA. Questions were solicited and answers provided to the satisfaction of the patient/family/POA.
[2023-06-16 08:55] VITALS: BP 98/73; PULSE 60; RESP 18; O2SAT 100
[2023-06-16 09:05] VITALS: BP 114/90; PULSE 65; RESP 22; O2SAT 96
[2023-06-16 09:15] VITALS: BP 124/82; PULSE 60; RESP 24; O2SAT 100
== END 2023-06-16 09:28 | disposition home or self-care (01) ==
PROVIDERS: PCP Emergency Medicine; Visit Provider Internal Medicine Gastroenterology
PROC: 0DJD8ZZ Inspection of Lower Intestinal Tract, Via Natural or Artificial Opening Endoscopic (ICD-10-PCS; CPT 45378; principal; 2023-06-16 09:00)
DX: Z12.11 Encounter for screening for malignant neoplasm of colon (principal); D12.2 Benign neoplasm of ascending colon; D12.3 Benign neoplasm of transverse colon; K64.8 Other hemorrhoids; K21.9 Gastro-esophageal reflux disease without esophagitis; E78.00 Pure hypercholesterolemia, unspecified; F41.8 Other specified anxiety disorders; G89.29 Other chronic pain; M54.9 Dorsalgia, unspecified; F17.210 Nicotine dependence, cigarettes, uncomplicated; Z79.891 Long term (current) use of opiate analgesic; Z98.890 Other specified postprocedural states; Z80.9 Family history of malignant neoplasm, unspecified
CPT/HCPCS: 45385; 88305; J7120

== ENCOUNTER 2023-12-13 14:28 | Outpatient (CLI) | payer OTHER, SELFPAY ==
--- NOTE | ~2023-12-13 | CT_ITS ---
CT Scan of the Chest without Contrast: Clinical Indication: Lung cancer screening, nicotine dependence Technique: Contiguous sections were acquired throughout the chest without intravenous contrast. Dose reduction technique was used on this scan by utilizing automated exposure control and iterative recon struction technique. The dose-length product (DLP) was 116.21 mGy-cm. COMPARISON: 08/13/2022 Findings: There is no evidence of any significant mediastinal, hilar or axillary lymphadenopathy. The mediastin al soft tissues appear normal. There is no evidence of pleural or pericardial effusion. The lungs are clear, aside from minimal bibasilar linear scarring. Images through the upper abdomen reveal no abnormalities. Impression: Lung RADS 1: Negative. 12 month follow-up screening CT advised. Reviewed, dictated and finalized at location . Impression: Lung RADS 1: Negative. 12 month follow-up screening CT advised.
== END 2023-12-13 14:29 | disposition home or self-care (01) ==
PROVIDERS: PCP Emergency Medicine; Visit Provider Emergency Medicine
DX: Z72.0 Tobacco use (principal)
CPT/HCPCS: 71271